=== PATIENT | female | born 2000 | race Caucasian/White ===

== ENCOUNTER 2024-09-29 19:28 | Emergency (ER) | payer BC | END 2024-09-30 00:18 | disposition home or self-care (01) | LOC: MW.ED 19:28 | DX: S83.92XA Sprain of unspecified site of left knee, initial encounter (principal); X50.9XXA Other and unspecified overexertion or strenuous movements or postures, initial encounter; Y93.72 Activity, wrestling | CPT/HCPCS: 73560-26-LT; 73560-LT; 99282; 99283 ==